=== PATIENT | female | born 1995 | race Caucasian/White ===

== ENCOUNTER → 2022-08-24 19:06 | Outpatient (CLI) | payer BC, SELFPAY ==
--- NOTE | 2022-08-24 19:10 | DI.RAD.S_ITS ---
PROCEDURE: XR FOOT LT MIN 3V INDICATIONS: pain around 1st MTP TECHNIQUE: 3 views of the foot were acquired. COMPARISON: None. FINDINGS: Bones: There is a linear lucency through the left great toe medial sesamoid bone. This may represent a normal variant bipartite sesamoid versus fracture. There is overlying soft tissue swelling. No distraction of the osseous components. No suspicious bony lesions. Soft tissues: No tibiotalar joint effusion. Achilles tendon appears normal. IMPRESSION: Possible fracture of the medial sesamoid of the 1st toe versus normal variant bipartite sesamoid. There is some overlying soft tissue edema. Recommend correlation with physical examination for point tenderness in this region. Dictated by: Yusef Gibson M.D. on 08/24/2022 at 19:45 Approved by: Yusef Gibson M.D. on 08/24/2022 at 19:46
== END ==
PROVIDERS: Referring Provider Family Medicine; Visit Provider Family Medicine
DX: M79.672 Pain in left foot (principal)
CPT/HCPCS: 73630

== ENCOUNTER → 2024-04-20 16:08 | Outpatient (CLI) | payer SELFPAY | PROVIDERS: Visit Provider Physician Assistant Medical | DX: J35.1 Hypertrophy of tonsils (principal) | CPT/HCPCS: 87070; 87147 ==

== ENCOUNTER → 2024-06-08 15:45 | Outpatient (CLI) | payer BC, SELFPAY | PROVIDERS: Visit Provider Student in an Organized Health Care Education/Training Program | DX: J02.9 Acute pharyngitis, unspecified (principal) | CPT/HCPCS: 87070 ==

== ENCOUNTER → 2024-06-30 10:06 | Outpatient (CLI) | payer BC, SELFPAY ==
[2024-06-30 11:53] LABS: HIV 1 & 2 Ab/Ag 4th Gen Combo NEGATIVE (NEGATIVE); Hep C Virus Ab w/Reflex Quant NEGATIVE s/c (NEGATIVE)
[2024-07-01 04:38] LABS: RPR Screen Non Reactive (Non Reactive)
== END ==
PROVIDERS: PCP Family Medicine; Referring Provider Family Medicine; Visit Provider Family Medicine
DX: Z11.3 Encounter for screening for infections with a predominantly sexual mode of transmission (principal); Z20.2 Contact with and (suspected) exposure to infections with a predominantly sexual mode of transmission
CPT/HCPCS: 36415; 86592; 86803; 87389

== ENCOUNTER → 2024-07-20 16:11 | Outpatient (CLI) | payer BC, SELFPAY ==
[2024-07-23 06:10] LABS: C.trachomatis RNA Negative (Negative); N.gonorrhoeae RNA Negative (Negative)
== END ==
PROVIDERS: PCP Family Medicine; Visit Provider Family Medicine
DX: Z11.3 Encounter for screening for infections with a predominantly sexual mode of transmission (principal); Z11.8 Encounter for screening for other infectious and parasitic diseases
CPT/HCPCS: 87491; 87563; 87591

== ENCOUNTER → 2025-01-12 10:59 | Outpatient (CLI) | payer BC, SELFPAY ==
[2025-01-12 11:44] LABS: Add Manual Diff / Slide Review NO; Hematocrit 44.3 % (36-46); Hemoglobin 15.0 g/dL (12.0-16.0); Lymphocytes Absolute Auto 1600 /uL (1100-4500); Mean Corpuscular HGB Conc 33.7 % (30-36); Mean Corpuscular Hemoglobin 30.0 PG (26-34); Mean Corpuscular Volume 88.8 fL (80-100); Platelet Count 284 X10^3/uL (150-400)
[2025-01-12 12:05] LABS: HEMOLYSIS < 15 (0-50); Iron 76 ug/dL (37-170)
[2025-01-12 12:21] LABS: Percent Iron Saturation 20 % (15-50); Total Iron Binding Capacity 375 ug/dL (265-497); Transferrin 318 mg/dL (206-381)
[2025-01-12 12:33] LABS: TSH w/ Reflex to FT4 16.40 uIU/mL (0.47-4.68)
[2025-01-12 12:38] LABS: Ferritin 19 ng/mL (6-137)
[2025-01-12 12:58] LABS: Free T4, Direct Thyroxine 0.67 ng/dL (0.78-2.19)
== END ==
PROVIDERS: PCP Family Medicine; Referring Provider Family Medicine; Visit Provider Family Medicine
DX: R53.83 Other fatigue (principal)
CPT/HCPCS: 82728; 83540; 83550; 84439; 84443; 85025

== ENCOUNTER → 2025-01-19 12:21 | Outpatient (CLI) | payer BC, SELFPAY ==
[2025-01-21 14:10] LABS: Anti Thyroglobulin Antibody <1.0 IU/mL (0.0-0.9)
== END ==
PROVIDERS: PCP Family Medicine; Referring Provider Family Medicine; Visit Provider Family Medicine
DX: E03.9 Hypothyroidism, unspecified (principal)
CPT/HCPCS: 36415; 86376; 86800